=== PATIENT | male | born 1980 | race Caucasian/White ===

== ENCOUNTER 2024-03-23 11:24 | Emergency (ER) | payer OTHER, SELFPAY ==
[2024-03-23 11:25] VITALS: BP 151/97
[2024-03-23 11:29] VITALS: BMI 31.1
[2024-03-23 11:59] LABS: % Basophils 0.5 % (0-2); % Immature Granulocytes 0.2 % (0-0.5); % Lymphocytes 5.6 % (20.5-51.1); % Monocytes 5.8 % (1.7-9.3); % Neutrophils 87.9 % (42.2-75.2); Absolute Lymphocytes 0.2 10^3/uL (1.2-3.4); Absolute Monocytes 0.3 10^3/uL (0.1-0.6); Absolute Neutrophils 3.8 10^3/uL (1.4-6.5); Hematocrit 35.1 % (39.0-52.0); Hemoglobin 11.3 g/dL (13.0-18.0); Mean Corp Hgb Conc. 32.2 g/dL (33.0-37.0); Mean Corpuscular Hgb 27.4 pg (27.0-31.0); Nucleated Red Blood Cells % 0 % (-); Platelet Count 144 10^3/uL (130-400); Red Blood Cell Count 4.13 10^6/uL (4.70-6.10); Red Cell Dist. Width 16.8 % (11.5-14.5); White Blood Cell Count 4.3 10^3/uL (4.8-10.8)
[2024-03-23 12:00] VITALS: BP 148/85
[2024-03-23 12:14] LABS: Blood Urea Nitrogen 13 mg/dl (9-20); Calcium 8.4 mg/dl (8.4-10.2); Carbon Dioxide 28 mmol/L (22-30); Chloride 99 mmol/L (98-107); Estimated Creatinine Clearance > 125 ml/min; Glucose 105 mg/dl (70-99); Sodium 136 mmol/L (135-145); eGFR > 60.00
[2024-03-23 13:25] VITALS: BP 176/80
[2024-03-23] MEDS: ATIVAN 1 MG IV (13:28)
[2024-03-23] MEDS: KEPPRA 1000 MG IV (13:28)
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
[2024-03-23 13:53] VITALS: BP 154/86
[2024-03-23 14:00] VITALS: BP 143/87
[2024-03-23 14:26] LABS: Alcohol None Detected
[2024-03-23 15:00] VITALS: BP 147/90
[2024-03-25 16:24] LABS: Lamotrigine (Lamictal) 11.5 ug/mL (3.0-15.0)
== END 2024-03-23 16:02 | disposition home or self-care (01) ==
LOC: EMR 11:24
PROVIDERS: Physician Assistant Medical; EMERGENCY PHYSICIAN Emergency Medicine; FAMILY PHYSICIAN Family Medicine
DX: G40.909 Epilepsy, unspecified, not intractable, without status epilepticus (principal); W22.03XA Walked into furniture, initial encounter; Z82.3 Family history of stroke; Z86.73 Personal history of transient ischemic attack (TIA), and cerebral infarction without residual deficits
CPT/HCPCS: 99284; 96374; 96375; 70450; 80048; 80175; 82077; 85025; 93005

== ENCOUNTER 2025-02-14 08:01 | Emergency (ER) | payer OTHER, SELFPAY ==
[2025-02-14 08:05] VITALS: BP 132/80
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
[2025-02-14 10:31] VITALS: BP 136/74
== END 2025-02-14 10:32 | disposition home or self-care (01) ==
LOC: EMR 08:01
PROVIDERS: EMERGENCY PHYSICIAN Emergency Medicine
DX: S89.92XA Unspecified injury of left lower leg, initial encounter (principal); S83.92XA Sprain of unspecified site of left knee, initial encounter; W51.XXXA Accidental striking against or bumped into by another person, initial encounter; Y93.02 Activity, running; Y92.321 Football field as the place of occurrence of the external cause; M11.262 Other chondrocalcinosis, left knee; M17.12 Unilateral primary osteoarthritis, left knee; E83.119 Hemochromatosis, unspecified; K76.0 Fatty (change of) liver, not elsewhere classified; Z98.84 Bariatric surgery status; Z86.73 Personal history of transient ischemic attack (TIA), and cerebral infarction without residual deficits; Z82.3 Family history of stroke
CPT/HCPCS: 99283; 20610; 73564